=== PATIENT | male | born 1985 | race African-American/Black ===

== ENCOUNTER 2016-09-14 22:43 | Inpatient (IN) | payer OTHER ==
--- NOTE | ~2016-09-14 | CR126 ---
[facility]. [facility] A Service of [facility] & [facility] RADIOLOGY TEXT RESULTS PATIENT: PAMELA MONTES LOCATION: C2A : 84 UNIT #: [id number] AGE: [address]: EKE PATRICK MD SEX: M ORDER DR: [id number] [place] [id number] [facility]. [place], [place] [address] [id number] I MR#: [id number] Acc #: [id number] NAME: PAMELA MONTES : 1985 SEX: M STUDY DATE/TIME: 09/14/2016 22:32 UNIT: C2 ROOM: 241 STUDY DESCRIPTION: CR Foot Complete Min 3 View Lt Attending Physician: Kee Patrick M.D. Ordering Physician: Chriss Patton D.O. Primary Care Physician: Primary Care Physician No MEDICAL IMAGING REPORT This report is preliminary unless electronic signature is present EXAM 3 views left foot, 09/14/2016 HISTORY 31-year-old male with paraplegia. Fever, confusion. Heel wound. . Patients states fall with wound 4 months ago. Fever and acute mental status changes for 2 days. COMPARISON 3 views left foot, 04/15/2016 FINDINGS There is an ulceration type defect at the posterior margin of the calcaneus measuring 1.6 cm superior to inferior and 1.0 cm in depth, extending nearly to the posterior cortical calcaneal margin. Extensive osteopenic changes are seen within the left foot and ankle predominantly in a periarticular distribution, which is nonspecific and could be related to disuse or even reflex sympathetic dystropy. However, there is no convincing evidence of cortical osteolysis or destructive features of osteomyelitis at this time. No fracture. No dislocation. IMPRESSION 1. Soft tissue ulcer defect at the posterior margin of the calcaneus extending nearly to the posterior calcaneal surface. No convincing osteolysis or bone destruction is seen at this time to suggest focal osteomyelitis. 2. Extensive periarticular osteopenic changes are seen within the left foot and ankle which appear new since 04/15/2016 which are nonspecific and could be on the basis of disuse or reflex sympathetic dystrophy. 3. No fracture or dislocation. Dictated by... [facility]. [facility] A Service of [facility] & [facility] RADIOLOGY TEXT RESULTS PATIENT: PAMELA MONTES LOCATION: [place] [id number] : 84 UNIT #: [id number] AGE: [address]: KEE PATRICK MD SEX: M ORDER DR: Beverley Ordonez M.D. THIS IS AN ELECTRONICALLY VERIFIED REPORT Beverley Ordonez M.D. at 09/16/2016 1:52 AM Samm TD: 09/15/2016 10:26 JOB #: [id number] MEDICAL IMAGING REPORT COPY
--- NOTE | ~2016-09-14 | HP ---
Unit #: [id number] #: [id number] Patient: PAMELA MONTES [id number] [address] [address] [id number] I MR#: [id number] NAME: PAMELA MONTES ROOM: 75262 Age: 31 Sex: M Admission Date: 09/15/2016 : 1985 Attending Physician: Monica Dietz M.D. Primary Care Physician: No Primary Care Physician HISTORY AND PHYSICAL CHIEF COMPLAINT UTI with early sepsis and toxic metabolic encephalopathy. HISTORY This pleasant 31-year-old male with a T11 spinal cord injury resulting in paraplegia along with neurogenic bladder, is admitted for a urinary tract infection. The patient was well until one week prior to admission when he noticed that his urine was more cloudy. Three days ago developed increasing fever with some delirium. Presented to this emergency department late last evening with a temperature of 105.1, tachycardic. He was given Tylenol, bolused a liter of saline, and given 2 g of Rocephin. On examination, he has a left heel decub and a stage 4 sacral decub. His states that the decubitus are actually improved and healing. PAST MEDICAL HISTORY 1. Fall resulting in a T11 spinal injury. The patient has associated paraplegia and neurogenic bladder requiring him to straight cath himself q.i.d. 2. History of DVT. 3. GERD. 4. Right hand surgery. 5. Left knee surgery. 6. Spinal cord surgery. ALLERGIES None. MEDICATIONS Home medications are listed as: 1. Flexeril 10 mg b.i.d. p.r.n. 2. Indomethacin 75 mg daily. 3. Flomax 0.4 mg daily. 4. OxyContin 40 mg b.i.d. 5. Ditropan 5 mg t.i.d. 6. Protonix 40 mg daily. 7. Vitamin D. FAMILY HISTORY Negative for kidney disease. SOCIAL HISTORY The patient lives with his and children. He smokes occasional Black Unit #: [id number] #: [id number] Patient: PAMELA MONTES and Mild cigars. He drinks occasional alcohol, does not use illicit drugs. REVIEW OF SYSTEMS Notable for cloudy urine, fever, confusion, paraplegia, DVT, acid reflux, decub. All other systems were reviewed and are negative. PHYSICAL EXAMINATION GENERAL APPEARANCE: Pleasant, somewhat ill appearing 31-year-old male, currently in no acute distress. VITAL SIGNS: Temperature was as high as 105.1, currently is 101.4, pulse 127, respirations 24, blood pressure 138/64. O2 saturation 99% on room air. HEENT: Eyes PERRLA. Extraocular muscles are intact. Pharynx is benign. NECK: Supple without adenopathy or thyromegaly. CHEST: Clear. BACK: Without CVA tenderness. CARDIAC: Normal S1 and S2 without murmur. ABDOMEN: Bowel sounds are present. No hepatosplenomegaly, tenderness or masses. Sacral region reveals a stage 4 sacral decub but appears to have healthy granulation tissue from what I can see. EXTREMITIES: Notable for chronic appearing edema with at least a stage 2, if not stage 3, left heel decub. Superficial decub right foot as well. NEUROLOGIC EXAM: The patient is mildly somnolent but easily arousable. His cranial nerves are intact. He has good strength in his arms. He is unable to move his legs. DIAGNOSTIC STUDIES LABORATORY: Admission labs - hematocrit is 35.6, MCV is 73, white blood count is 14.8, platelet count is 432. Coags normal. SMA-12 - glucose 112, sodium 131, chloride is 98, calcium 8.3, albumin 3.1. Lactic acid normal. Alkaline phos. 186. Urine - positive leukocyte esterase, 200 to 300 white cells, 4+ bacteria. No squamous cells seen. IMAGING: Chest x-ray - no acute disease. Plain x-rays of left leg shows soft tissue ulcer over the calcaneus and osteopenia. Head CT normal. CARDIOVASCULAR: EKG - sinus tachycardia, rate 127. ASSESSMENT 1. Urinary tract infection with early sepsis and toxic metabolic encephalopathy: Patient straight caths q.i.d. for neurogenic bladder. 2. T11 spinal cord injury with paraplegia and neurogenic bladder. 3. Stage 4 sacral decub and stage 2 to 3 left heel decub although states that these decubs are improving. 4. History of deep venous thromboses. 5. Gastroesophageal reflux disease. 6. Chronic pain. PLANS Unit #: [id number] #: [id number] Patient: ABREN,PAMELA 1. IV fluids. 2. Continue Rocephin and will give one dose of vancomycin pending cultures. 3. Wound surgeon to see. 4. DVT prophylaxis. 5. Request old records. Dictated by Antonio Posada/makenzie TD: 09/15/2016 05:39 JOB #: [id number] HISTORY AND PHYSICAL X Monica Dietz MD X HISTORY AND PHYSICAL
--- NOTE | ~2016-09-14 | CR72 ---
[facility] A Service of [facility] & [facility] RADIOLOGY TEXT RESULTS PATIENT: PAMELA MONTES LOCATION: C2A 241- : 84 UNIT #: [id number] AGE: [address]: KEE PATRICK MD SEX: M ORDER DR: [id number] [facility] [address] [facility]. [place], [place] [address] [id number] I MR#: [id number] Acc #: [id number] NAME: PAMELA MONTES : 1985 SEX: M STUDY DATE/TIME: 09/14/2016 22:06 UNIT: [facility] ROOM: 241 STUDY DESCRIPTION: CR Chest Single View Portable Attending Physician: Kee Patrick M.D. Ordering Physician: Chriss Patton D.O. Primary Care Physician: Primary Care Physician No MEDICAL IMAGING REPORT This report is preliminary unless electronic signature is present EXAM Portable chest HISTORY Fever, confusion, shortness of air x2 days FINDINGS Portable view of the chest demonstrates no infiltrates or effusions. Heart and mediastinum unremarkable. Fixation instrumentation is seen at the lower thoracic spine. Overall no acute cardiopulmonary abnormality. Dictated by... Sp Tao M.D. THIS IS AN ELECTRONICALLY VERIFIED REPORT Sp Tao M.D. at 09/15/2016 6:34 PM Catherine TD: 09/15/2016 10:21 JOB #: [id number] MEDICAL IMAGING REPORT COPY
--- NOTE | ~2016-09-14 | CT71 ---
[facility] A Service of [facility] / [facility] RADIOLOGY TEXT RESULTS PATIENT: PAMELA MONTES LOCATION: A : 84 UNIT #: [id number] AGE: [address]: KEE PATRICK MD SEX: M ORDER DR: [id number] [facility] [address] [facility]. [place], [place] [address] [id number] I MR#: [id number] Acc #: [id number] NAME: PAMELA MONTES : 1985 SEX: M STUDY DATE/TIME: 09/14/2016 23:24 UNIT: [facility] ROOM: 241 STUDY DESCRIPTION: CT Head Wo Contrast Attending Physician: Kee Patrick M.D. Ordering Physician: Chriss Patton D.O. Primary Care Physician: Primary Care Physician No MEDICAL IMAGING REPORT This report is preliminary unless electronic signature is present EXAM Noncontrast CT head. DATE: 09/14/2016 at 23:24 HISTORY Acute mental status changes with fever, confusion for 2 days. Paraplegic. Sacral and heel wounds. COMPARISON: None. FINDINGS TECHNIQUE Axial noncontrast images were obtained from the skull base to the vertex. This CT exam was performed with one or more of the following radiation dose reduction techniques: automatic exposure control, adjustment of mA and/or kV according to patient size, and iterative reconstruction. FINDINGS Ventricular size and configuration are normal. There is no evidence of acute infarct or hemorrhage. There are no extraaxial fluid collections. No mass lesion or mass effect is seen. There are no skull fractures. IMPRESSION Normal noncontrast head CT. Dictated by... Beverley Ordonez M.D. THIS IS AN ELECTRONICALLY VERIFIED REPORT Beverley Ordonez M.D. at 09/16/2016 1:51 AM [facility] A Service of [facility] & [facility] RADIOLOGY TEXT RESULTS PATIENT: PAMELA MONTES LOCATION: A : 84 UNIT #: [id number] AGE: [address]: KEE PATRICK MD SEX: M ORDER DR: AYLIN/mia TD: 09/15/2016 10:47 JOB #: [id number] MEDICAL IMAGING REPORT COPY
--- NOTE | ~2016-09-14 | DS ---
Unit #: [id number] #: [id number] Patient: PAMELA MONTES [id number] [address] [place], [place] [address] [id number] I MR#: [id number] NAME: PAMELA MONTES ROOM: 241 Age: 31 Sex: M Admission Date: 09/15/2016 : 1985 Discharge Date: 09/16/2016 Attending Physician: Ever Patrick M.D. DISCHARGE SUMMARY This is Dr. Patrick dictating discharge summary. DISCHARGE DIAGNOSES 1. Urinary tract infection secondary to E coli. 2. Toxic metabolic encephalopathy. 3. T1 spinal cord injury with paraplegia and neurogenic bladder. 4. Stage IV sacral decubitus and stage II to III left heel decubitus. 5. Gastroesophageal reflux disease. HOSPITAL COURSE The patient is a 31-year-old male with history of T1 spinal cord injury resulting in paraplegia along with neurogenic bladder is admitted due to urinary tract infection. See the H and P for further details. The patient was started on IV fluids and IV antibiotics with Rocephin. The patient showed improvement with IV fluids and antibiotics. The patient's blood culture remained negative. The patient's urine culture came positive for the more than 100,000 gram-negative rods probable E coli. The patient was seen by the Surgery for the wounds and recommended sacral decubitus stage IV 4 x 9 cm deep, but good granulation and the right heel also 1 cm in dimension deep with the cellulitic and 2+ edema of right leg. The patient is recommended to local wound care with clean heel decubitus with Hibiclens, soap plus water every 8 hours and apply Santyl to wounds after cleaning the saline moist to dry cleaning. Saline moist to dry dressing to sacral decubitus every 8 hours. The patient had dressing changed by the Surgery and the patient showed improvement. The patient received IV antibiotics with Rocephin and the patient wanted to go home and discharge home in stable condition, on oral antibiotics with Omnicef 300 mg orally b.i.d. for 5 more days to finish the 7 days course. PHYSICAL EXAMINATION GENERAL: The patient is sitting on a chair, not in acute distress. VITAL SIGNS: Temperature 97.7, pulse 85, respirations 20, blood pressure 114/59. HEENT: Head; atraumatic, normocephalic. Extraocular movements are intact. NECK: Supple. No adenopathy. LUNGS: Clear to auscultation bilaterally. No rhonchi. No wheezing. HEART: Regular rate and rhythm. ABDOMEN: Soft. Positive bowel sounds. SACRAL: Reveals status post sacral decubitus ulcer with healthy granulation tissue. EXTREMITIES: Noted for chronic pitting edema with stage II left heel Unit #: [id number] #: [id number] Patient: PAMELA MONTES decubitus ulcer. NEUROLOGIC: The patient is alert, awake, oriented, not drowsy, and somnolent is resolved. DIAGNOSTIC STUDIES LABORATORY RESULTS: Glucose 112, BUN 10, creatinine 0.5, sodium 136, potassium 3.6, chloride 108, bicarb 27, calcium 8.3, lactic acid is 1.3. INR is 1.2. WBC 14.9, hemoglobin 10.6, hematocrit 33.9, platelets 386, neutrophils 79.2. UA shows 3+ leukocyte esterase and 200 to 300 wbc's, and 4+ urine bacteria. DISCHARGE HOME MEDICATIONS The patient is on the Flomax 0.4 mg at bedtime, bisacodyl 10 mg b.i.d., bisacodyl suppository, Ditropan 5 mg t.i.d., Collagenase Santyl, chlorhexidine, indomethacin, oxycodone, Protonix, Flexeril, and vitamin D. DISCHARGE INSTRUCTIONS The patient is recommended to follow up with wound care and PCP in 1 week and the patient is discharged home in stable condition. Dictated by.Antonio Valverde TD: 09/17/2016 06:46 JOB #: [id number] DISCHARGE SUMMARY X X DISCHARGE SUMMARY
--- NOTE | ~2016-09-14 | EKG ---
PATIENT: PAMELA MONTES UNIT #: [id number] Ventricular Rate: 127 BPM Atrial Rate: 127 BPM P-R Interval: 128 ms QRS Duration: 86 ms Q-T Interval: 306 ms QTC Calculation(Bezet): 444 ms P [place]: 63 degrees Calculated R [place]: 34 degrees Calculated T [place]: 43 degrees Diagnosis Line: Sinus tachycardia Diagnosis Line: Otherwise normal ECG Diagnosis Line: No previous ECGs available Diagnosis Line: Confirmed by GARRICK HERNANDEZ MD ([id number]) on Diagnosis Line: 09/15/2016 8:18:46 AM INTERPRETING MD: MARY MEJIA
[2016-09-14 22:38] LABS: URINE SOURCE CLEAN CATCH
[~2016-09-14 22:43] MED LIST: DITROPAN X15 MG/BOTT PO; DITROPAN5 MG PO; FLEXERIL10 MG PO; FLOMAX0.4 M1 PO; INDOMETHACIN75 MG PO; OXYCONTIN40 MG PO; PROTONIX PO; VITAMIN D1000 UNI2 PO
[2016-09-14 22:48] LABS: URINE APPEARANCE CLOUDY; URINE BILIRUBIN NEG (NEG); URINE BLOOD NEG (NEG); URINE COLOR YELLOW; URINE GLUCOSE NEG (NEG); URINE KETONE NEG (NEG); URINE LEUKOCYTE ESTERASE 3+ (NEG); URINE NITRATE NEG (NEG); URINE PROTEIN NEG (NEG); URINE SPECIFIC GRAVITY 1.014 (1.003-1.035)
[2016-09-14 22:48] LABS: BASOPHIL# 0.1 X10e3 (0-0.3); BASOPHIL% 0.8 % (0-2.5); HEMATOCRIT 35.6 % (38.0-50.0); HEMOGLOBIN 11.6 gm/dL (13.0-16.0); LYMPHOCYTE# 1.9 X10e3 (1.0-3.5); LYMPHOCYTE% 13.2 % (17.0-45.0); MEAN CELL VOLUME 72.8 FL (83-96); MEAN CORPUSCULAR HEMOGLOBIN 23.8 PG (28-34); MEAN CORPUSCULAR HGB CONC 32.7 g/dL (30-36); MEAN PLATELET VOLUME 8.3 FL (6.5-11.5); MONOCYTE% 6.8 % (3.0-12.0); NEUTROPHIL# 11.7 X10e3 (1.5-7.1); NEUTROPHIL% 79.2 % (40-75); PLATELET COUNT 432 X10e3 (140-420); RED CELL DISTRIBUTION WIDTH 21.2 % (11.0-15.5); WHITE BLOOD COUNT 14.8 X10e3 (4.0-10.5)
[2016-09-14 22:49] LABS: DIFF IND NO
[2016-09-14 22:52] LABS: CULTURE INDICATED? YES; U HYALINE CASTS AUWI 0-2 /[LPF]; URINE BACTERIA AUWI 4+ (NEGATIVE); URINE SQUAMOUS EPITHELIAL CELL NONE SEEN /[HPF]; UWBCS1 AUWI 200-300 (0-5)
[2016-09-14 22:59] LABS: INFLUENZA A NEG (NEG); INFLUENZA B NEG (NEG)
[2016-09-14 23:00] LABS: INR 1.2; PARTIAL THROMBOPLASTIN TIME 30.8 SECONDS (23.5-31.3); PROTHROMBIN TIME (PATIENT) 12.7 SECONDS (9.6-11.5)
[2016-09-14 23:09] LABS: ALBUMIN SERUM 3.1 g/dL (3.5-5.0); ALKALINE PHOSPHATASE 186 U/L (32-92); ALT (SGPT) 18 U/L (10-40); AST (SGOT) 22 U/L (10-42); BILIRUBIN, DIRECT 0.1 mg/dL (0.0-0.2); BILIRUBIN,INDIRECT 0.1 mg/dL (0.0-0.9); BILIRUBIN,TOTAL 0.2 mg/dL (0.2-2.0); BLOOD UREA NITROGEN 9 mg/dL (9-23); CALCIUM SERUM 8.3 mg/dL (8.4-10.2); CARBON DIOXIDE 26 mmol/L (22-31); CHLORIDE 98 mmol/L (100-111); CREATININE SERUM 0.6 mg/dL (0.6-1.4); GLOM FILT RATE Estimated ABOVE60 mL/min (>60); GLUCOSE FASTING 112 mg/dL (70-110); POTASSIUM 3.7 mmol/L (3.5-5.1); PROTEIN TOTAL SERUM 7.5 g/dL (6.0-8.3); SODIUM 131 mmol/L (135-145)
[2016-09-16 05:04] LABS: HEMATOCRIT 33.9 % (38.0-50.0); HEMOGLOBIN 10.6 gm/dL (13.0-16.0); MEAN CELL VOLUME 74.4 FL (83-96); MEAN CORPUSCULAR HEMOGLOBIN 23.3 PG (28-34); MEAN CORPUSCULAR HGB CONC 31.3 g/dL (30-36); RED BLOOD COUNT 4.55 X10e (3.90-5.60); RED CELL DISTRIBUTION WIDTH 21.2 % (11.0-15.5); WHITE BLOOD COUNT 14.9 X10e3 (4.0-10.5)
[2016-09-16 06:03] LABS: BLOOD UREA NITROGEN 10 mg/dL (9-23); CALCIUM SERUM 8.3 mg/dL (8.4-10.2); CARBON DIOXIDE 27 mmol/L (22-31); CHLORIDE 108 mmol/L (100-111); CREATININE SERUM 0.5 mg/dL (0.6-1.4); GLOM FILT RATE Estimated ABOVE60 mL/min (>60); GLUCOSE FASTING 112 mg/dL (70-110); POTASSIUM 3.6 mmol/L (3.5-5.1); SODIUM 136 mmol/L (135-145)
[2016-09-16] MEDS ORDERED: GENTLE LAXATIVE10 MG PR (12:35)
[2016-09-16] MEDS ORDERED: ACETAMINOPHEN325 MG PO (12:35)
[2016-09-16] MEDS ORDERED: LAXATIVE PO (12:36)
[2016-09-16] MEDS ORDERED: SANTYL15 G1 TOP (12:37)
[2016-09-16] MEDS ORDERED: HIBICLENS 4% L120 ML TOP (12:37)
[2016-09-16] MEDS ORDERED: OMNICEF300 M1 PO (12:38)
== END 2016-09-16 15:12 | disposition home or self-care (01) | DRG 871 ==
LOC: CED 22:43 → CEDOF 09-15 02:40 → C2A 09-15 07:54
PROVIDERS: Emergency Medicine; Internal Medicine
DX: A41.51 Sepsis due to Escherichia coli [E. coli] (principal); G92 Toxic encephalopathy; G82.20 Paraplegia, unspecified; L89.154 Pressure ulcer of sacral region, stage 4; L89.623 Pressure ulcer of left heel, stage 3; N39.0 Urinary tract infection, site not specified; L03.115 Cellulitis of right lower limb; B96.20 Unspecified Escherichia coli [E. coli] as the cause of diseases classified elsewhere; K21.9 Gastro-esophageal reflux disease without esophagitis; N31.9 Neuromuscular dysfunction of bladder, unspecified; Z86.718 Personal history of other venous thrombosis and embolism; G89.29 Other chronic pain
CPT/HCPCS: 36415; 70450; 71010; 73630; 80048; 80076; 81003; 82947; 83605; 85025; 85027; 85610; 85730; 87040; 87086; 87088; 87186; 87804; 93005; 96365; 99285; J0696; J1650; J2405; J3370